=== PATIENT | male | born 1965 | race Caucasian/White ===

== ENCOUNTER 2016-07-04 11:30 | Outpatient (RCR) | payer MEDICARE, MEDICAID | END 2016-07-14 | disposition still patient (30) | LOC: WSPT | DX: M54.5 Low back pain (principal) | CPT/HCPCS: G8978-GP; G8979-GP ==

== ENCOUNTER 2016-08-13 13:30 | Outpatient (RCR) | payer MEDICARE, MEDICAID | END 2016-08-14 11:18 | disposition home or self-care (01) | LOC: WSPT 13:30 | DX: M54.5 Low back pain (principal) | CPT/HCPCS: G8979-GP; G8980-GP ==

== ENCOUNTER 2018-03-17 09:12 | Day surgery (SDC) | payer MEDICARE, MEDICAID ==
[~2018-03-17] VITALS: Ht 160 cm; Wt 84.6 kg
[2018-03-17] MEDS ORDERED: PRILOSEC 20MG20 MG PO ×2 (09:42)
[2018-03-17] MEDS ORDERED: LEVOXYL0.1 MG PO (09:42)
[2018-03-17] MEDS ORDERED: SINGULAIR 110 MG/TAB PO (09:43)
[2018-03-17 09:45] VITALS: BP 123/92; PULSE 62; TEMP 98.7
[2018-03-17 11:05] VITALS: BP 106/70; PULSE 58; TEMP 97.5
[2018-03-17 11:20] VITALS: BP 105/81; PULSE 67
== END 2018-03-17 11:50 | disposition home or self-care (01) ==
LOC: SDCO 09:12
DX: Z12.11 Encounter for screening for malignant neoplasm of colon (principal); K64.0 First degree hemorrhoids; K57.30 Diverticulosis of large intestine without perforation or abscess without bleeding; Q90.9 Down syndrome, unspecified; Q02 Microcephaly; F79 Unspecified intellectual disabilities; E03.9 Hypothyroidism, unspecified; K21.9 Gastro-esophageal reflux disease without esophagitis; Z79.899 Other long term (current) drug therapy
CPT/HCPCS: J2250; J2704; J3010; J7030